=== PATIENT | male | born 1955 | race Caucasian/White ===

== ENCOUNTER 2021-12-07 09:35 | Day surgery (SDC) | payer OTHER ==
[~2021-12-07] VITALS: Ht 177.8 cm; Wt 72.0 kg
[~2021-12-07 09:35] MED LIST: ABAC300; MULTI-VITAMIN-1 EACH PO; OMEP20ER PO
[2021-12-07] MEDS ORDERED: LORA10ER PO (09:57)
[2021-12-07] MEDS ORDERED: Acerola C500 MG PO (09:57)
[2021-12-07] MEDS ORDERED: PANT40 PO (09:57)
[2021-12-07] MEDS ORDERED: VITAMIN D31000 UNIT (09:58)
== END 2021-12-07 12:10 | disposition home or self-care (01) ==
LOC: ORSCSDS 09:35
PROVIDERS: Internal Medicine Gastroenterology
PROC: 0DBP8ZX Excision of Rectum, Via Natural or Artificial Opening Endoscopic, Diagnostic (ICD-10-PCS; principal; 2021-12-07 10:45)
PROC: 0DBL8ZX Excision of Transverse Colon, Via Natural or Artificial Opening Endoscopic, Diagnostic (ICD-10-PCS; principal; 2021-12-07 10:45)
PROC: 0DBH8ZX Excision of Cecum, Via Natural or Artificial Opening Endoscopic, Diagnostic (ICD-10-PCS; principal; 2021-12-07 10:45)
PROC: 0DBM8ZX Excision of Descending Colon, Via Natural or Artificial Opening Endoscopic, Diagnostic (ICD-10-PCS; principal; 2021-12-07 10:45)
PROC: 0DBN8ZX Excision of Sigmoid Colon, Via Natural or Artificial Opening Endoscopic, Diagnostic (ICD-10-PCS; principal; 2021-12-07 10:45)
PROC: 0DBK8ZX Excision of Ascending Colon, Via Natural or Artificial Opening Endoscopic, Diagnostic (ICD-10-PCS; principal; 2021-12-07 10:45)
DX: Z12.11 Encounter for screening for malignant neoplasm of colon (principal); Z86.010 Personal history of colon polyps; D12.2 Benign neoplasm of ascending colon; D12.3 Benign neoplasm of transverse colon; D12.4 Benign neoplasm of descending colon; D12.8 Benign neoplasm of rectum; D12.5 Benign neoplasm of sigmoid colon; K21.9 Gastro-esophageal reflux disease without esophagitis; J45.998 Other asthma; Z79.899 Other long term (current) drug therapy
CPT/HCPCS: 88305; J2704

== ENCOUNTER 2024-09-14 06:07 | Day surgery (SDC) | payer OTHER ==
[2024-09-14] VITALS (11 sets, daily range): BP systolic 96–128; BP diastolic 62–89
[~2024-09-14] VITALS: Ht 177.8 cm; Wt 75.0 kg
[~2024-09-14 06:07] MED LIST changes: +ALBU2.5V5 INH; +Acerola C500 MG PO; +C COMPLEX1000 M1 PO; +LORA10ER PO; +MULTI-VITAMIN1 EAC2 PO; +PANT40 PO; +VITAMIN D31000 UNIT
[2024-09-14] MEDS ORDERED: OMEP20ER PO (06:26)
[2024-09-14] MEDS ORDERED: Lactated Ringer's 1,000 ML IV SCH (06:35)
[2024-09-14] MEDS ORDERED: CeFAZolin Sodium 2,000 MG in NS 100 ML IV SCH (06:35)
[2024-09-14] MEDS ORDERED: Bupivacaine 0.5% HCl 5 MG/ML 30MLVIAL ONE (07:00)
[2024-09-14] MEDS ORDERED: CeFAZolin Sodium 2,000 MG VIAL ONE (07:06)
--- NOTE | 2024-09-14 07:14 | NUR ---
History, Chart, Medications and Allergies reviewed before start of procedure. Patient confirms NPO status and agrees with scheduled surgery.
[2024-09-14] MEDS ORDERED: propofoL 20 ML IV ONE (07:20)
[2024-09-14] MEDS ORDERED: FentaNYL Citrate 50 MCG/ML 2 ML Injection ONE ×2 (07:21→10:16)
[2024-09-14] MEDS ORDERED: Lidocaine HCl 2% 20 ML MDV ONE (07:24)
[2024-09-14] MEDS ORDERED: Rocuronium Bromide 10 MG/ML 5ML Injection IV ONE ×3 (07:24→09:49)
--- NOTE | 2024-09-14 08:11 | NUR ---
09/14/24 0811 Imelda Mendez NOTED RED RASH TO PTS ABDOMEN UPON ARRIVAL TO OR LIKELY FROM HAIR REMOVAL IN PREOP
[2024-09-14] MEDS ORDERED: Sugammadex Sodium 200 MG/2ML SDV (100 MG/ML) ONE (08:46)
[2024-09-14] MEDS ORDERED: Dexamethasone Sod Phos 10 MG/ML 1ML VIAL ONE (08:46)
[2024-09-14] MEDS ORDERED: Ondansetron HCl 2 MG / ML 2ML Vial ONE (08:46)
[2024-09-14] MEDS ORDERED: Ketorolac Tromethamine 30mg Vial ONE (08:46)
[2024-09-14] MEDS ORDERED: OxyCODONE 5 mg/Acetamin 325 mg TABLET PO PRN (10:20)
--- NOTE | 2024-09-14 11:59 | NUR ---
DISCHARGE NOTE PT A&OX4, BREATHING RA, TOLERTING PO INTAKE, PO PAIN MEDICATION GIVEN PER MD ORDERS. Patient up to Ambulate independently. Gait steady. Discharge instructions reviewed with patient. Patient verbalizes understanding. Copy given to patient to take home. Dressing to procedure site clean, dry, intact with no visible drainage, swelling, erythema or bruising noted. Discharged via wheelchair to private car for ride home.GLASSES ON PT UPON DISCHARGE.
== END 2024-09-14 11:57 | disposition home or self-care (01) ==
LOC: ORSCMMR 06:07 → ORD 07:30 → ORSCMMR 11:57
PROVIDERS: Surgery
PROC: 8E0W4CZ Robotic Assisted Procedure of Trunk Region, Percutaneous Endoscopic Approach (ICD-10-PCS; principal; 2024-09-14 07:30)
PROC: 3E0T3BZ Introduction of Anesthetic Agent into Peripheral Nerves and Plexi, Percutaneous Approach (ICD-10-PCS; principal; 2024-09-14 07:30)
PROC: 0YUA4JZ Supplement Bilateral Inguinal Region with Synthetic Substitute, Percutaneous Endoscopic Approach (ICD-10-PCS; principal; 2024-09-14 07:30)
PROC: 0YUE4JZ Supplement Bilateral Femoral Region with Synthetic Substitute, Percutaneous Endoscopic Approach (ICD-10-PCS; principal; 2024-09-14 07:30)
DX: K40.00 Bilateral inguinal hernia, with obstruction, without gangrene, not specified as recurrent (principal); K41.00 Bilateral femoral hernia, with obstruction, without gangrene, not specified as recurrent; K45.0 Other specified abdominal hernia with obstruction, without gangrene; D17.5 Benign lipomatous neoplasm of intra-abdominal organs; E78.5 Hyperlipidemia, unspecified; K21.9 Gastro-esophageal reflux disease without esophagitis; Z79.899 Other long term (current) drug therapy
CPT/HCPCS: 88304; A9270; J0690; J1100; J1885; J2405; J2704; J3010; J7120

== ENCOUNTER 2025-01-24 08:47 | Day surgery (SDC) | payer OTHER ==
[~2025-01-24] VITALS: Ht 177.8 cm; Wt 73.8 kg
[2025-01-24 13:49] VITALS: BP 95/63
== END 2025-01-24 11:17 | disposition home or self-care (01) ==
LOC: ORSCSDS 08:47
PROVIDERS: Surgery
PROC: 0DJD8ZZ Inspection of Lower Intestinal Tract, Via Natural or Artificial Opening Endoscopic (ICD-10-PCS; principal; 2025-01-24 10:15)
DX: Z12.11 Encounter for screening for malignant neoplasm of colon (principal); Z86.0101 Personal history of adenomatous and serrated colon polyps; K64.1 Second degree hemorrhoids; K64.2 Third degree hemorrhoids; K21.9 Gastro-esophageal reflux disease without esophagitis; E78.5 Hyperlipidemia, unspecified; Z79.899 Other long term (current) drug therapy
CPT/HCPCS: J2704; J7120